=== PATIENT | male | born 1950 | race Caucasian/White ===

== ENCOUNTER 2017-02-25 08:25 | Day surgery (SDC) | payer MEDICARE, OTHER ==
[~2017-02-25] VITALS: Ht 185.4 cm; Wt 116.5 kg
[2017-02-25 08:25] VITALS: BP 150/96; PULSE 56; TEMP 97.8
[~2017-02-25 08:25] MED LIST: ALLEGRA 180MG180 MG PO; ALLEGRA180 MG PO; ASPIRIN 32325 MG/TAB PO; CLONIDINE0.1 MG PO; COUMADIN10 MG PO; COUMADIN5 MG PO; COZAAR100 MG PO; DILTIAZEM HCL360 MG PO; FISH OIL500 MG PO; FLECAINIDE ACET50 MG PO; FORTAMET1000 MG PO; GLIPIZIDE5 MG PO; GLUCOSAMINE CHO1 CA1 PO; IBU800 M1 PO; K-DUR20 MEQ PO; LOPID600 MG PO; METOPROLOL SUC100 MG PO; METOPROLOL100 MG PO; MULTIPLE VITAMI1 TAB PO; NIACIN500 M3 PO; NUVIGIL250 MG PO; POTASSIUM20 MEQ PO; PRILOSEC 20MG20 MG PO; TERAZOSIN HCL10 M1 PO; TERAZOSIN HCL10 MG PO; TRIAMTERENE/HCT1 TA2 PO; WARFARIN10 MG PO
[2017-02-25] MEDS ORDERED: NORVASC 10MG10 MG PO (08:57)
[2017-02-25] MEDS ORDERED: COZAAR100 MG PO (08:57)
[2017-02-25] MEDS ORDERED: TOPROL XL100 MG PO (08:57)
[2017-02-25] MEDS ORDERED: ALDACTONE 25MG25 M1 PO (08:58)
[2017-02-25] MEDS ORDERED: CATAPRES 0.1MG0.1 MG PO (08:58)
[2017-02-25] MEDS ORDERED: PRADAXA 150MG150 MG PO (08:59)
[2017-02-25] MEDS ORDERED: TIKOSYN0.25 MG PO (08:59)
[2017-02-25] MEDS ORDERED: HYTRIN 5MG C5 MG/CAP PO (08:59)
[2017-02-25] MEDS ORDERED: LOPID 600M600 MG/TAB PO (09:00)
[2017-02-25] MEDS ORDERED: LIPITOR 10MG10 MG PO (09:00)
[2017-02-25] MEDS ORDERED: METFORMIN ER PO (09:04)
[2017-02-25] MEDS ORDERED: JANUVIA 100MG100 MG PO (09:05)
[2017-02-25] MEDS ORDERED: PROTONIX 40MG T40 MG PO (09:05)
[2017-02-25] MEDS ORDERED: COLACE 100100 MG/CAP PO (09:16)
[2017-02-25] MEDS ORDERED: ULTRAM 50MG TAB50 MG PO (09:18)
[2017-02-25] MEDS ORDERED: MULTIPLE VITAMI1 CAP PO (09:18)
[2017-02-25] MEDS ORDERED: MIRALAX PA17 GM/Dose PO (09:18)
[2017-02-25] MEDS ORDERED: VITAMIN B-1000 MCG/T PO (09:20)
[2017-02-25] MEDS ORDERED: CHROMIUM PICOLI1 TA8 PO (09:21)
[2017-02-25] MEDS ORDERED: VITAMIN E PO (09:22)
[2017-02-25] MEDS ORDERED: NIACIN FLUSH F400 MG PO (09:23)
[2017-02-25] MEDS ORDERED: VITAMIN D 1001000 IU PO (09:23)
[2017-02-25] MEDS ORDERED: ASPIRIN 81M81 MG/TA2 PO (09:28)
[2017-02-25] MEDS ORDERED: [UNRECOGNIZED DRUG - OTHER] PO (09:28)
[2017-02-25 11:15] VITALS: BP 133/92; PULSE 54
[2017-02-25 12:13] VITALS: BP 109/70; PULSE 49
== END 2017-02-25 11:33 | disposition home or self-care (01) ==
LOC: SDCO 08:25
DX: D12.3 Benign neoplasm of transverse colon (principal); K21.9 Gastro-esophageal reflux disease without esophagitis; K59.00 Constipation, unspecified; M19.90 Unspecified osteoarthritis, unspecified site; I48.91 Unspecified atrial fibrillation; E11.9 Type 2 diabetes mellitus without complications; I11.9 Hypertensive heart disease without heart failure; E78.00 Pure hypercholesterolemia, unspecified; Z85.46 Personal history of malignant neoplasm of prostate; Z79.01 Long term (current) use of anticoagulants; Z79.4 Long term (current) use of insulin; Z79.84 Long term (current) use of oral hypoglycemic drugs; Z86.73 Personal history of transient ischemic attack (TIA), and cerebral infarction without residual deficits; Z87.891 Personal history of nicotine dependence
CPT/HCPCS: J2250; J2405; J3010

== ENCOUNTER 2024-04-17 10:26 | Outpatient (RCR) | payer MEDICARE, OTHER ==
[~2024-04-17 10:26] MED LIST changes: +ALDACTONE 25MG25 M1 PO; +ASPIRIN 81M81 MG/TA2 PO; +CATAPRES 0.1MG0.1 MG PO; +CHROMIUM PICOLI1 TA8 PO; +COLACE 100100 MG/CAP PO; +HYTRIN 5MG C5 MG/CAP PO; +JANUVIA 100MG100 MG PO; +LIPITOR 10MG10 MG PO; +LOPID 600M600 MG/TAB PO; +METFORMIN ER PO; +MIRALAX PA17 GM/Dose PO; +MULTIPLE VITAMI1 CAP PO; +NIACIN FLUSH F400 MG PO; +NORVASC 10MG10 MG PO; +PRADAXA 150MG150 MG PO; +PROTONIX 40MG T40 MG PO; +TIKOSYN0.25 MG PO; +TOPROL XL100 MG PO; +ULTRAM 50MG TAB50 MG PO; +VITAMIN B-1000 MCG/T PO; +VITAMIN D 1001000 IU PO; +VITAMIN E PO; +[UNRECOGNIZED DRUG - OTHER] PO
== END 2024-04-21 | disposition still patient (30) ==
LOC: WSST
DX: R13.10 Dysphagia, unspecified (principal)

== ENCOUNTER → 2024-04-24 | Outpatient (CLI) | payer MEDICARE | LOC: COL.RAD 08:26 | DX: R13.10 Dysphagia, unspecified (principal) ==

== ENCOUNTER 2024-05-08 11:15 | Outpatient (RCR) | payer MEDICARE, OTHER | END 2024-05-21 | disposition home or self-care (01) | LOC: WSST | DX: R13.10 Dysphagia, unspecified (principal) ==